=== PATIENT | female | born 1930 | race Hispanic/Latino ===

== ENCOUNTER → 2017-11-04 | Outpatient (CLI) | payer OTHER, MEDICARE ==
[~2017-11-04] MED LIST: ACET-66 PO; AMLO1CAP2 PO; ASPI-555 PO; BRIM5DRO OU; CALCIUM PLUS D PO; CENTRUM PO; FURO-152 PO; HYDR-4060 PO; LABE100T PO; NITROGLYCERINE SL; RALO60TA PO; TRAVATAN OU; VENL-53 PO; [UNRECOGNIZED DRUG - OTHER] PO; nexium PO
== END | disposition home or self-care (01) ==
LOC: SHCH 13:44
PROVIDERS: ATTEND Internal Medicine Cardiovascular Disease
DX: I50.32 Chronic diastolic (congestive) heart failure (principal); I34.0 Nonrheumatic mitral (valve) insufficiency
CPT/HCPCS: 93306

== ENCOUNTER → 2017-11-17 | Outpatient (CLI) | payer OTHER, MEDICARE | END | disposition home or self-care (01) | LOC: RAH 16:03 | PROVIDERS: ATTEND Internal Medicine | DX: M47.894 Other spondylosis, thoracic region (principal); M41.84 Other forms of scoliosis, thoracic region | CPT/HCPCS: 72070 ==

== ENCOUNTER → 2018-04-27 | Outpatient (CLI) | payer OTHER, MEDICARE ==
[~2018-04-27] MED LIST changes: -LABE100T PO; +LABE100T5 PO
== END | disposition home or self-care (01) ==
LOC: RAH 16:37
PROVIDERS: ATTEND Internal Medicine
DX: K59.00 Constipation, unspecified (principal); M47.895 Other spondylosis, thoracolumbar region; M85.80 Other specified disorders of bone density and structure, unspecified site; M41.85 Other forms of scoliosis, thoracolumbar region
CPT/HCPCS: 74018